=== PATIENT | female | born 1965 | race Caucasian/White ===

== ENCOUNTER 2020-07-27 19:23 | Emergency (ER) | payer OTHER ==
[~2020-07-27] VITALS: Ht 172.7 cm; Wt 81.7 kg
[~2020-07-27 19:23] MED LIST: ALER PO; BUTALB-ACETAMI1 EACH PO; CALCIUM 600 +1 EAC1 PO; DAILY VITAMIN1 EAC2 PO; MAXALT MLT10 MG PO; NORCO 5-325 TA1 EACH PO; SYNTHROID125 MCG PO
--- NOTE | 2020-07-28 13:14 | EKG ---
[facility] [address] [place] [address] Signed Normal sinus rhythm Normal ECG No previous ECGs available Confirmed by BARNEY HOLLAND MD ([id number]) on 07/28/2020 1:13:53 PM Electronically Signed By: BARNEY HOLLAND MD 07/28/20 1314 PATIENT NAME: NICHOLE DOSHI Electrocardiogram DATE OF : 65 PHYSICIAN: BARNEY HOLLAND MD REPORT #: [id number] REPORT IS CONFIDENTIAL AND NOT TO BE RELEASED WITHOUT AUTHORIZATION
== END 2020-07-27 22:00 | disposition home or self-care (01) ==
LOC: ED 19:23
DX: G43.809 Other migraine, not intractable, without status migrainosus (principal); Z88.8 Allergy status to other drugs, medicaments and biological substances; Z79.899 Other long term (current) drug therapy
CPT/HCPCS: 70450; 70496; 70498; 71045; 80053; 85025; 85610; 85730; 93005; 93010; 96361; 99284-25; J1200; J1885; J2765; J7030; Q9967

== ENCOUNTER 2021-05-28 10:39 | Inpatient (IN) | payer OTHER ==
[~2021-05-28] VITALS: Ht 172.7 cm; Wt 81.7 kg
--- NOTE | 2021-05-28 14:33 | NUR ---
REPORT RECEIVED FROM BRANDO RIZO. AWAITING PTS ARRIVAL TO UNIT.
[2021-05-28] MEDS ORDERED: NP THYROID60 MG PO (15:17)
--- NOTE | 2021-05-28 15:30 | NUR ---
PT ARRIVED FROM ER. PT SHORT OF BREATH. ABLE TO SPEAK IN 3-5 WORD SENTENCES. WHILE RESTING PT MAINTINAING OXYGEN SATRUATIONS 92-95% ON 2L O2 BY NC. PT REPORTS ACHING BACK PAIN AT 5/10, AND PAIN WITH COUGH AT 5/10, AND HEADACHE PAIN AT 6/10, BODYACHES AT 5/10. PT REPORTS "I WAS REALLY NAUSEOUS IN THE BEGINING" PT REPORTS MILD NAUSEA AT THIS TIME. PT REPORTS SHE HAS LOST HER SENSE OF TASTE AND SMELL AND HAS "NOT BEEN ABLE TO EAT VERY MUCH AT ALL." PT ENCORUAGED TO STAY HYDRATED WITH WATER TOLERATED. SEE MAR FOR MEDICATIONS GIVEN. PT ALERT AND ORIENTED TO ALL, ANSWERING QUESTIONS APPROPRIATLY. PT REPORTS GENERALIZED WEAKNESS. WEAKNESS NOTED IN PLANTAR, DORSI FLEXTION AND ARM AND LEGS RAISES. CRACKELS NOTED IN RIGHT LOWER LOBE, LEFT LOWER LOBE DEMINISHED. PT TACHPNIC WITH ANY ACTIVITY AND WITH CONVERSATION. OXYGEN SATRUATIONS 90-95% ON 2L O2 BY NC. CPOX IN PLACE. PRONING EDUCATION DONE. I.S. USE TAUGHT. PT DEMONSTRATES USE OF I.S. RACHING 500ML X3 BEFORE BECOMING EXHAUSTED. PT DECLINES PRONING AT THIS TIME. BUT AGREES TO LYE ON RIGHT SIDE. PT ASSISTED INTO RIGHT SIDED POSITION. SUPPORTED WITH PILLOWS. PT REPORTS PAIN AT IV SITE. PAIN ALSO NOTED WITH FLUSH. IV DC'D. GAUZE AND COBAN APPLIED. NEW IV STARTED PER PROTOCOL TO RIGHT WRIST. NO PAIN WITH FLUSH, NO S/S OF PHLEBITIS NOTED. MEDICAITONS GIVEN (SEE MAR). PT RESTING WITH EYES CLOSED. RESPIRATIONS EVEN AND UNLABORED. BED RAILS UP. CALL LIGHT WITHIN REACH.
--- NOTE | 2021-05-28 16:47 | NUR ---
PUMP ALARMING, INFUSION AND FLUSH COMPLETE. IV ASSESED, WNL. BRISK BLOOD RETURN NOTED. LINE FLUSHED AND SALINE LOCKED PER PROTOCOL. ALCOHOL CAP APPLIED. PT REPORTS HEADACHE NOW 2/10, BODY ACHES NOW 3/10, COUGH PAIN AT 5/10, BACK ACHE AT 2/10. PT DENIES NEED FOR ADDITIONAL PAIN MEDICATION. STAND BY ASSIST UP TO VOID, PT VOIDS 500ML CLEAR YELLOW URINE BUT STATES "IT HURTS TO PEE." PT REPORTS ABDOIMINAL PAIN WITH URINATION. WILL CONTINUE TO MONITOR. PT ENCORUAGED TO DRINK FLUIDS. PT REPOSITONED TO LEFT SIDE. BED RAILS UP. CALL LIGHT WITHIN REACH.
--- NOTE | 2021-05-28 17:46 | NUR ---
THIS RN TO ROOM TO CHECK ON PT. PT RESTING ON BACK IN SITTING POSITION. OXGYEN SATURATION REMAINS AT 92-95% ON 2L O2 BY NC. PT DENIES ADDITIONAL REQUESTS OR COMPLAINTS. CALL LIGHT WITHIN REACH. BED RAILS UP.
--- NOTE | 2021-05-28 18:14 | NUR ---
THIS RN TO ROOM TO CHECK ON PT. TELE DC'D PER MD ORDER. PT REMAINS ON CONTINIOUS PULSE OX. OXGYEN SATRAUTIONS NOTED TO BE 88% ON 2L O2 BY NC. PT IN SITTING POSITION STATING SHE IS TRYING TO DO THE PRONING ROTATION. OXYGEN INCREASED TO 4L O2 BY NC AND PT ENCOURAGED TO PRONE. PT DECLINES PRONING AT THIS TIME STATING "MAYBE TOMORROW." PT ASSISTED TO LYE ON SIDE. O2 CLIMBES TO 91% ON 4L O2 BY NC. BED RAILS UP. CALL LIGHT WITHIN REACH.
--- NOTE | 2021-05-28 18:42 | NUR ---
PTS LEO CALLED AND UPDATED ON PTS STATUS. COVID EDUCATION DONE WITH LEO WHO VERBALIZES UNDERSTANDING AND STATES HIS QUESTIONS HAVE BEEN ANSWERED.
--- NOTE | 2021-05-28 19:00 | NUR ---
PT ADMITTED TODAY FOR COVID 19 PNEUMONIA. PT UP IN ROOM WITH STAND BY ASSIST. DYSPNEA ON EXERTION NOTED WITH TACHPENIA DURING ACTIVITY. PT ON 4L O2 BY NC WITH INCREASED OXYGEN NEEDS THIS EVENING AND DURING ACTIVITY. PRONING EDUCATION DONE. PT AGREES TO BOTH SIDES AND SITTING THIS SHFIT BUT DECLIENS LYING ON HER STOMACH. PRN NAUSEA AND PAIN MEDICATION GIVEN FOR BODY ACHES, HEADACHE, AND STOMACH DISCOMFORT. PT DEMONSTRATES USE OF. I.S. THIS SHIFT, SHALLOW BREATHING NOTED. NEW IV TO RIGHT WRIST PER PT REQUEST. 1ST DOSE OF DEXAMETHASONE AND REMDESIVIR GIVEN. PT VOIDING QUANTITY SUFFICIENT. PT USES CALL LIGHT APPROPRIATLY.
--- NOTE | 2021-05-28 19:24 | NUR ---
REPORT GIVEN TO BRANDO MIGUEL WHO IS ASSUMING CARE OF PT.
--- NOTE | 2021-05-28 19:31 | NUR ---
rRORLANDOORT RECEIVED FROM MITCHELL MICHAELS ON THIS PATIENT. SHE IS COVID PNEUMONIA ADMITTED TODAY CURRENTLY ON 4 LITER O2 VIA NC. CURRENTLY ON TELE # 7 WITH CONTINUOUS PULSE/OX MONITORING.
--- NOTE | 2021-05-28 21:15 | NUR ---
IN ROOM TO ASSESS PATIENT AND TO SEE IF SHE NEEDS ANYTHING. PATIENT HAS USED RESTROOM TO VOID AND HAVE A SMALL BM, THIS RECORDED ON I & O'S. PATIENTREPORTED A HEADACHE AND SHE WAS GIVEN TYLENOL WELL ZOFRAN FOR SLIGHT NAUSEA, AND HER SCHEDULED MED SEE EMAR. PATIENT BEGINS TO COUGH DURING RESPIRATORY ASSESSMENT. HER SATS ON 4 LITER VIA NC GO DOWN INTO THE LOW MID 90'S WITH GOOD WAVEFORM. PATIENT INSTRUCTED TO COUGH AND TURN ONT O HER SIDE, SHE POSITIONS ON HER RIGHT SIDE AND SATS COME UP TO THE LOW 90'S. REINFORCED TO PATIENT THE IMPORTANCE OF MOVING POSITIONS, PRONING AND SUCH TO IMROVE HER LUNG FUNCTION. PATIENT USED INCENTIVE SPIROMETER, INSTRUCTED TO USE THIS A FEW TIMES WHEN SHE IS AWAKE. DENIES OTHER NEEDS. CALL LIGHT IN REACH.
--- NOTE | 2021-05-28 23:09 | NUR ---
CHECKED ON PATIENT. SHE APPEARS TO BE ASLEEP BUT WAKES UP EASILY. ASKED HER IF HER HEADACHE WAS BETTER SHE STATES "YES" ALSO REPORTING IMPROVED NAUSEA. PATIENT DENIES OTHER NEEDS OR REQUESTS. CALL LIGHT INREACH. REMAINS ON HER RIGHT SIDE, ON CONTINUOUS PULSE OX MONITORING, ON 4 LITERS ON NC.
--- NOTE | 2021-05-29 00:50 | NUR ---
PATIENT'S O2 SATURATION HAS GONE BACK INTO THE 80'S WENT INTO ROOM TO CHECK ON PATIENT SHE HAS GONE BACK TO HER BACK LYING POSITION. WAVEFORM CHECKED AND IS GOOD. PATIENT ENCOURAGE TO CONTINUE GOING TO HER SIDE AND PRONE POSITIONS, ENCOURAGED TO COUGH AND USE THE INCENTIVE SPIROMETER. PATIENT IS REPORTING "HEARTBURN" AND SLIGHT NAUSEA.LUNGS AUSCULTATED WHILE PATIENT ON RIGHT SIDE, UPPER LOBES CLEAR, LOWER LOBES DIMINISHED, SLIGHT CRACKLES. WILL BE CONSULTING WITH RT ABOUT NEXT STEPS, PATIENT'S O2 HAS BEEN TITRATED TO 6L NC AND SHE IS LYING ON HER RIGHT SIDE. SATS UP TO 93%
--- NOTE | 2021-05-29 01:39 | NUR ---
SHANTELLE FROM RT HAS PLACED PATIENT ON HIGH FLOW NASAL CANNUAL AT 6 LITERS. PATIENT SATS HOLDING AT 97%
--- NOTE | 2021-05-29 02:41 | NUR ---
IN ROOM TO CHECK ON PATIENT AND TO OBTAIN VITAL SIGNS. PATIENT CONTINUES TO MOVE POSITIONS FROM LEFT SIDE LAYING TO RIGHT SIDE LAYING, CURRENTLY RESTING ON HER RIGHT SIDE HUGGING PILLOW, ON 6 L O2 NASAL CANNULA HIGH FLOW HUMIDIFIED. SATS REMAIN IN MID 90 RANGE. PATIENT REPORTING HER HEARTBURN IS "MUCH BETTER" PATIENT ALSO NEEDD TO VOID, STANDBY ASSIST FOR PATIENT WHILE SHE USED COMMODE VOIDED 450 ML. BACK TO BED. CALL LIGHT IN REACH.
--- NOTE | 2021-05-29 05:25 | NUR ---
LAB COLLECTED AND SENT
--- NOTE | 2021-05-29 06:20 | NUR ---
ALMOST CORRECTION THROUGH THE SHIFT PATIENT'S SATS ON 4 LITERS NASAL CANNUAL WERE DROPPING TO THE 80'S MORE FREQUENT AND WOULD COME BACK UP WHEN PATIENT COUGHED AND TURNED TO HER SIDE. PATIENT WAS ENCOURAGED THROUGHOUT THE NIGHT TO LAY ON HER SIDE AND TO PRONE,ATIENT OPREFERS TO BE ON SIDE, EXPLAINED WHY PRONE WAS IMPORTANT. PATIENT PLACED ON 6 LITERS NC BUT SATS WOULD STILL HOVER IN THE HIGH 80'S SO PATIENT PLACED ON HUMIDIFIED HIGH FLOW 6 L NC PER RT, HAS MAINTAINED SATS IN THE MID TO UPPER 90'S. PATIENT C/O HEARTBURN DURING NIGHT GIVEN MAALOX, TYLENOL FOR HEADACHE, AND PRN COUGH MEDS. MORNING LABS DRAWN. THYROID MED GIVEN SEE EMAR.
--- NOTE | 2021-05-29 07:19 | NUR ---
REPORT RECEIVED FROM BRANDO DELAROSA. PT RESTING ON RIGHT SIDE, AWAKE AND ALERT. PT REMAINS ON 6L O2 BY HIGH FLOW NC WITH OXYGEN SATURATIONS 96-99%. WILL ADJUST O2 FLOW RATE WITH MORNING ASSESSMENT. PT REPORTS BODY ACHES AND STOMACH ACID REQUESTING MEDICATIONS. NO ADDITIONAL REQUESTS OR COMPALINTS. CALL LIGHT WITHIN REACH. BED RAILS UP.
--- NOTE | 2021-05-29 07:45 | NUR ---
MORNING ASSESSMENT AND MEDICATION DUE. PT CONTINUES TO REPORT NAUSA WELL 6/10 HEADACHE, 8/10 BACKACHE, AND 7/10 COUGH/CHEST PAIN. PT ALSO REPORTS PROBLEMS WITH "STOMACH ACID WHEN I DRINK WATER." SEE MAR FOR MEDICATIONS GIVEN. IV ASSESSED, WNL, NO S/S OF PHLEBITIS NOTED. PT REQUESTS ASSISTANCE UP TO RESTROOM. STAND BY ASSIST UP TO RESTROOM WITH 6L O2 LEFT IN PLACE. PT DESATURATES WITH ACTIVITY DOWN TO 67-72%. SEVERE DYSPNEA ON EXERTION NOTED. COUGH INCREASES AND PT REPORTS SHE "CAN'T GET MY BREATH." PT BACK TO BED INTO LEFT SIDE LYING POSITION. AFTER 5 MINUTES TIME O2 SATRUATIONS INCREASE TO 88% ON 6L O2 BY HIGH FLOW NC. O2 INCREASED TO 10L O2 BY HIGH FLOW NC WITH OXYGEN SATURATIONS STEADY FROM 91-93%. LUNG SOUNDS CLEAR ALTHOUGH DEMINISHED IN BASES. PT WEANED BACK TO 6L O2 BY NC AFTER 10 MINUTES OF RESTING TIME, OXYGEN SATRAUTIONS MAINTAINING ABOVE 90%. PT DECLINES I.S. USE AT THIS TIME STATING SHE IS TOO TIRED. PT DECLINES BREAKFAST AT THIS TIME. PRONING EDUCATION DONE WITH PT. PT AGREES TO PRONING. PT ASSISTED IN TO PRONING POSITION, SUPPORTED WITH PILLOWS. OXYGEN SATURATIONS REMAIN ABOVE 90% ON 6L O2 BY NC. CALL LIGHT AND PERSONAL BELONGINGS WITHIN REACH. NO ADDIITONAL REQUESTS OR COMPLAINTS. BED RAILS UP.
--- NOTE | 2021-05-29 08:28 | NUR ---
Spoke with pts spouse as she proning and asleep. He states they live in a 2 story home and pt uses both floors. She was having difficulty with sob prior to admit. Pt does not use any DME, financial ok. Pt usually healthy and active. 2 teenage daughter are at home and will usually healthy and active. 2 teenage daughter are at home and will assist. Daughters have both had covid, spouse is currently ill with covid. Plan for pt to go home on dc. They would like 02 from [facility] if needed on discharge. Spouse declined list of DME companies.
--- NOTE | 2021-05-29 08:34 | NUR ---
PUMP ALARMING, INFUSION AND FLUSH COMPLETE. IV ASSESSED, WNL. SALINE LOCKED WITH ALCOHOL CAP APPLIED. PT CONTINUES RESTING IN PRONE POSITION. O2 AT 96% ON 6L O2 BY NC. CALL LIGHT WITHIN REACH. BED RAILS UP.
--- NOTE | 2021-05-29 10:30 | NUR ---
THIS RN TO ROOM WITH MD FOR ROUNDS. PTS OXYGENATION VERY POSITONAL: 97-99% ON 6L O2 BY NC WITH PRONING, 92-94% LYING ON SIDE. 86-88% SITTING UP IN BED OR LYING ON BACK. PT ABLE TO TALK WITH DOCTOR. REPORTS PAIN HAS IMPROVED, NOW 2/10 HEADACHE, 2/10 COUGH PAIN , AND 3/10 BACK ACHE. PT DENIES NEED FOR ADDITIONAL MEDIAITON AT THIS TIME. PT REQUSTS TO SIT UP FOR BREAKFAST. HEAD OF BED ELEVATED AND O2 SATURATION DROPS TO 86%. O2 RAISED TO 10L O2 BY NC WITH SATURTIONS MAINTAINING ABOVE 89% WHILE EATING. NO ADDITIONAL REQUESTS OR COMPLAINS. CALL LIGHT WITHIN REACH. BED RAILS UP.
--- NOTE | 2021-05-29 11:47 | NUR ---
NOON ASSESSMENT DUE. THIS RN TO ROOM. PT RESTING IN BED ON BACK WITH HEAED OF BED ELEVATED TO 30 DEGREES. PT REPORTS 6/10 HEADACHE, BACK PAIN AND COUGHING CHEST PAIN. SEE MAR FOR MEDICATION GIVEN. PT REPORTS MILD NAUSEA BUT DENIES NEED FOR MEDICATION AT THIS TIME. PT SLIGHTLY SLOW TO RESPOND. ORIENTED TO ALL BUT TAKES A FEW ATTEMPTS TO GET THE YEAR CORRECT. PT CONTINUES TO BE VERY WEAK, ABLE TO STAND AT SIDE OF BED AND GET UP TO USE BEDSIDE COMODE, SLOW TO MOVE, STAND BY ASSIST. DYSPNEA ON EXERTION NOTED. OXYGEN SATURATIONS CONTINUE TO BE HIGHLY POSITIONAL. SITTING IN BED 10L O2 BY NC WITH O2 90-93%. UP TO BEDSIDE COMODE O2 INCREASED TO 14L O2 BY NC WITH OXYGEN SATRUATIONS 88-91%. TCHYPENEA WITH EXERTION. PT DELINSE ENSURE AT THIS TIME, SOUP ORDERED FOR LUNCH. URINE BECOMING MORE CONCENTRATED. PT ENCOURAGED TO DRINK FLUIDS. PT STATES THE ACOSTA AND JUICES "TASTE SALTY." PT AGREES TO SPEND MORE TIME PRONING AFTER LUNCH. REMAINS IN SITTING POSITION AT THIS TIME WITH O2 AT 10L AND SATRATIONS OF 90-93%. PT DEMONSTRATES USE OF I.S. X5 REACHING 500-750ML. NO ADDITIONAL REQUESTS OR COMPLAINTS. CALL LIGHT WITHIN REACH. BED RAILS UP.
--- NOTE | 2021-05-29 14:06 | NUR ---
THIS RN TO ROOM TO CHECK ON PT. PT CONTINUES TO REPORT 6/10 HEADACHE, BACK PAIN AND COUGH PAIN. PT ALSO REPORTS HEART BURN AND NAUSEA. SEE MAR FOR MEDICATIONS GIVEN. PT ON 6L O2 BY NC WHILE RESTING ON LEFT SIDE WITH O2 SATRUATIONS 90-94%. PT ASSISTED INTO PRONING POSITION AND STATES "OH, THAT FEELS REALLY COMFORTABLE." OXGYEN SATURATIONS CLIMB TO 98% ON 6L O2 BY NC. PT DENIES ADDITIONAL REQUESTS OR COMPLAINTS. CALL LIGHT WITHIN REACH.
--- NOTE | 2021-05-29 14:42 | NUR ---
PTS , LEO, CALLED AND UPDATED ON PTS CONDITION AND PLAN OF CARE. LEO STATES HIS QUESTIONS HAVE BEEN ANSWERED.
--- NOTE | 2021-05-29 15:45 | NUR ---
THIS RN TO ROOM TO CHECK ON PT. PT RESTING ON LEFT SIDE, STATES SHE "JUST ROLLED OVER." O2 AT 93% ON 6L O2 BY NC. PT REPORTS NAUSEA HAS RESOLVED AND HEADACHE, BODYACHES AND COUGH PAIN ARE NOW AT 3/10. PT DENIES NEED FOR ADDITIONAL MEDICAITON. PT REQUESTS HER DAUGHTER DELON BE CALLED AND UPDATED. CALL PLACED TO DELON, NO ANSWER AT THIS TIME. MESSAGE LEFT FOR CALL BACK. NO ADDITIONAL REQUESTS OR COMPLAINTS. PT ASSISTED WITH POSITIONING TO LYE ON RIGHT SIDE. CALL LIGHT AND PERSONEL BELONGINGS WITHIN REACH. BED RAILS UP.
--- NOTE | 2021-05-29 16:11 | NUR ---
RETURN CALL FROM DELON, RECEIVED. DELON UPDATED ON PT STATUS AND PLAN OF CARE. DELON VERBALIZES UNDERSTANDING AND STATES HER QUESTIONS HAVE BEEN ANSWERED.
--- NOTE | 2021-05-29 16:24 | NUR ---
PT HERE FOR COVID RELATED PNEUMONIA. UP WITH STAND BY ASSIST THIS SHIFT TO BEDSIDE COMODE, PT UNABLE TO DO ADDITIONAL ACTIVITY. OXYGEN SATURATION VERY POSITIONAL: 96-98 ON 6L PRONE, 90-94% ON 6L WHEN LYING ON SIDES, 90-91 ON 10L SITTING UP TO EAT, 88-90 ON 10L UP TO BEDSIDE COMODE. VERY MINIMAL APPITITE NOTED. PT CONTINUES TO REPORT NAUEA AND PROBLEMS WITH ACID REFLUX, PRN MEDICATIONS GIVEN. PRN MEDICATION GIVEN FOR BODY ACHES, HEADACHE AND COUGH PAIN WELL. TELEMETRY HEART MONITORING DC'D, CONTINIOUS PULSE OX REMAINS IN PLACE. REMDESIVIR AND DEXAMETHASONE GIVEN. PT VOIDING QUANTITY SUFFIENT, PO FLUIDS ENCORUAGED. I.S. USE ENSURED, PT CONTINUES TO REACH ~500ML. PT USES CALL LIGTH AND MAKES NEEDS KNOWN.
--- NOTE | 2021-05-29 16:53 | NUR ---
AFTERNOON ASSESSMENT DUE. THIS RN TO ROOM. PT REMAINS ON RIGHT SIDE. OXYGN SATURATIONS 95% ON 6L O2 BY NC. PT REPORTS ACID REFLUX CONTINUES AND STATES SHE IS UNABLE TO DRINK HER WATER LIKE SHE WANTS BECUASE "IT MAKES THE ACID WORSE EVERY TIME I DRINK." PT ALSO REQUESTS SOME MELATONIN. MESSAGE SENT TO WITH UPDATE/REQEUSTS. PT REPORTS HEADACHE, BODYACHES AND COUGH PAIN REMAIN AT 3/10 AND DENIES NEED FOR PAIN MEDICATION AT THIS TIME. PT ALERT AND OIRENTED AT THIS TIME, CARRYING ON CONVERASATION. WEAKNESS CONTINUES, SBA, BUT PT IS VERY SLOW TO MOVE. SBA UP TO BEDSIDE COMODE. O2 DROPS TO 84% ON 10L O2 BY NC WITH ACTIVITY. PT REMAINS ON 10L O2 BY NC WHILE SITITNG UP IN BED TO EAT. CRACKELS CONTINUE IN BASES OF LUNGS. I.S. USE DEMONSTRATED REACHING 900ML X2 ADN 750ML X4. PT REPORTS SHE FEELS SHE IS CLOSE TO AN ANXIETY ATTACK, THERAPUTIC COMMUNICAITON DONE AND PLAN MADE. PT STATES SHE FEELS BETTER, WILL CONTINUE TO MONITOR. PT REPORTS "I THINK I AM GETTING AN ULCER" AND STATES STOMACH PAIN FELLS SIMILAR TO ULCERS SHE HAS HAD IN THE PAST. DINNER ARRIVED, PT ABLE TO TAKE 2-3 BITES BEFORE STATING THAT EATING AND DRINKING IS MAKING HER ABDOMINAL PAIN WORSE. PT CONTINUES SITTING UP IN BED. HEAD OF BED ELEVATED TO 45 DEGREES. O2 SATURATIONS HAVE DROPPED TO 85% ON 10 WHILE SITTING. O2 INCREASED TO 14L BY HIGH FLOW HUMIDIFIED NC WITH SATURATIONS CLIMBING TO 90%. CALL LIGHT WITHIN REACH. BED RAILS UP.
--- NOTE | 2021-05-29 17:20 | NUR ---
MD UPDATED FACE TO FACE REGARDING PTS CONCERNS AND OXYGEN NEEDS. NEW ORDERS PLACED. MEDICATIONS GIVEN (SEE MAR). PT RESTING IN SUPINE POSITION. REMAINS ON 14L O2 BY HIGH FLOW NC WITH O2 SATURATIONS 88-92%. BED RAILS UP. CALL LIGHT WITHIN REACH.
--- NOTE | 2021-05-29 17:44 | NUR ---
MED REC COMPLETE
--- NOTE | 2021-05-29 18:42 | NUR ---
THIS RN TO ROOM TO CHECK ON PT. STAND BY ASSIST UP TO BEDSIDE COMODE. O2 AT 14L DURING ACTIVITY, PT DESATURATES TO 82% ON 14L WITH ACTIVITY, COUGH INCREASES AND TACHEPNEA RR=[id number] NOTED. STAND BY ASSIST BACK TO BED. PT POSITIONED ON RIGHT SIDE OXYGEN SATURATIONS RECOVER IN 5MINTUES TIME. PT WEANED BACK TO 6L O2 BY NC WITH OXYGEN SATURATIONS 90-93%. COUGH MEDICATIONS GIVEN. PT REPORTS MEDICATIONS HELPED HER STOMACH, ACID REFULX "A LOT." NO ADDITIONAL REQUESTS OR COMPLAINTS. CALL LIGHT WITHIN REACH.
--- NOTE | 2021-05-29 19:41 | NUR ---
RECIVED REPORT FROM MITCHELL MICHAELS ON THIS PATIENT. PATIENT REMAINS ON HIGH FLOW HUMIDIFIED O2 AT 6 LITERS NC, HAS BEEN PRONING AND LYING ON HER SIDES TODAY BUT APPEARS VERY TIRED WITH ANY ACTIVITY SUCH EATING AND VOIDING. POSSIBLY MAY NEED TO BE PLACED ON VAPOTHERM TONIGHT. PT WANTS TO PUT EARRINGS IN SAFE TIME WILL GO IN TO CHECK ON HER
--- NOTE | 2021-05-29 20:19 | NUR ---
in room to do assessment. patient's earrings, x 4 collected and placed in specimen cup pt wishes for them to be put in safe. pt had to use commode has had small bm. luciano reports headache to have tylenol prn see emar. patient denies other needs at this time. continues on high flow humidifed o2 at 6 liters NC sats 95%
--- NOTE | 2021-05-29 22:28 | NUR ---
CHECKED ON PATIETN TO SEE HOW HER HEADACHE IS, PATIENT APPEARED TO BE SLEEPING, RESPIRATIONS EVEN, UNLABORED, CONTINUES TO BE ON HIGH FLOW O2 AT 6 LITERS NC, LYING ON HER RIGHT SIDE. CALL LIGHT IN REACH.
--- NOTE | 2021-05-29 23:24 | NUR ---
AT PATIENT'S DOOR TO CHECK ON HER. SHE IS LYING ON HER RIGHT SIDE, AKSED IF SHE WAS DOING OK, ASKED PATIENT IF SHE HAS BEEN TURNING SELF SHE SAYS SHE "HAS BEEN GOING TO MY OTHER SIDE" REMAINS ON HIGH FLOW O2 6 LITERS NC. CALL LIGHT IN REACH
--- NOTE | 2021-05-30 01:46 | NUR ---
in room to check on patient and change tele battery she wakes up to this rn's voice. patient lying on her left side. requests fresh ice water this provided. patient has not had to void for several hours continues to deny need. has been drinking fluids while awake. reports she has used IS when she was awake. sats remain low mid 90's on 6 l o2 humidified via nc. asks for "more maalox"
--- NOTE | 2021-05-30 03:55 | NUR ---
in to assist pt up to the bsc, sba pivot, pt o2 dropped and pt was sob, i.s. used and pt recovered, ice water provided, no further needs at this time
--- NOTE | 2021-05-30 04:13 | NUR ---
PT ASKS FOR MORE TYLENOL FOR HEADACHE, SEE EMAR. VITALS OBTAINED, PATIENT ALSO JUST VOIDED PRIOR TO THIS RN COMING PATRICIA ROOM. PT LAYING ON RIGHT SIDE, HIGH FLOW O2 VIA 6L NC. NO OTHER NEEDS, CALL LIGHT IN REACH
--- NOTE | 2021-05-30 05:13 | NUR ---
COLLETCED BLOOD SPECIMEN AND SENT TO LAB
--- NOTE | 2021-05-30 06:41 | NUR ---
PATIENT HAS MANAGED TO TURN SIDE TO SIDE THROUGHOUT NIGHT. HAD TYLENOL TWICE THIS SHIFT FOR ONGOING HEADACHE. HAS HAD ABOUT 950 ML ORAL INTAKE IN 24 HOURS, 1400 URINE OUTPUT. USING I.S. WHEN AWAKE. USING MAALOX FOR HEARTBURN.
--- NOTE | 2021-05-30 07:12 | NUR ---
REPORT RECEIVED FROM BRANDO DELAROSA. PT RESTING ON RIGHT SIDE, TALKING ON PHONE. O2 SATURATIONS 96% ON 6L O2 BY NC. PT REPORTS 2/10 HEADACHE AND COUGHING CHEST PAIN, PT STATES PAIN IS TOLEARABLE AT THIS TIME AND DENIES NEED FOR MEDICATION. NO ADDITIONAL REQUESTS OR COMPLAINTS. CALL LIGHT WITHIN REACH. BED RAILS UP.
--- NOTE | 2021-05-30 08:30 | NUR ---
MORNING ASSESSMENT AND MEDICAITON DUE. PT REPORTS BURNING STOMACH "ACID" PAIN HAS RETURNED, NOW AT 7/10, SEE MAR FOR MEDICAITON GIVEN. PT REPORTS 2/10 HEADACHE AND 3/10 BACK PAIN, PT DENIES NEED FOR MEDICATION AT THIS TIME. SUPERVISOR PARK WORKERS AT BEDSIDE HELPING PT TO SITTING POSITION FOR BREAKFAST. PT DROPS TO 80% ON 6L O2 IN SITTING POSITION. O2 INCRASED TO 14L WHILE EATING WITH OXYGEN SATRATIONS 85-90%. PT DENIES NAUSEA. PT REPORTS SHE WAS ABLE TO HAVE A SMALL BOWEL MOVEMENT LAST NIGHT. NO DIARRHEA NOTED. PT ALERT AND ORIENTED. LUNG SOUNDS CLEAR IN UPPER LOBES, RIGHT LOWER LOBE CRACKLES NOTED, LEFT LOWER LOBE DEMINISHED. PT DEMONSTRATES USE OF I.S. REACHING 300ML X5. COUGHING INCREASED, COUGH MEDICAITON GIVEN. PT REPORTS NEED TO USE THE RESTROOM. OXYGEN INCREASED TO 16L O2 BY NC PRIOR TO ACTIVITY. OXGYEN SATRATIONS REMAIN IN THE 80'S. PT DROPS TO 76% WITH ACTIVITY DESPITE 16L O2 BY NC. PT VOIDS 400ML CLEAR YELLOW URINE WITH OUT ISSUE. PT PERFORMES SELF STEVEN CARE. PT BACK TO BED AND ASSSISTED INTO PRONING POSITION. OXYGEN SATRUATIONS CLIMB TO 98%, PT WEANED BACK TO 6L O2 BY NC AND IS MAINTAING OXYGEN SATRATIONS ABOVE 92% ON 6L WHILE PRONING. PT REPORTS FEELING COMFORTABLE. NO ADDITIONAL REQUESTS OR COMPLAINTS. CALL LIGHT WITHIN REACH. BED RAILS UP.
--- NOTE | 2021-05-30 09:17 | NUR ---
REMDESIVIR ARRIVED FROM PHARMACY, IV ASSESSED, WNL, MEDICATION STARTED. PT NOTED TO BE 86-89% ON 6L O2 BY NC WHILE PRONING. PT INCREASED TO 8L 2O BY NC AND IS MAINTINING OXYGEN SATURATIONS 90-94% WHILE PRONING. NO ADDITIONAL REQUESTS OR COMPLAINTS. CALL LIGHT WITHIN REACH. BED RAILS UP.
--- NOTE | 2021-05-30 10:15 | NUR ---
IV PUMP ALARMING, INFUSION AND FLUSH COMPLETE. IV ASSESSED, WNL, FLUSHED AND ALCOHOL CAP APPLIED, SALINE LOCKED AT THIS TIME. PT REPOSITONS SELF FROM PRONING TO LEFT SIDE LIYING. PT COTINUES TO NEED 8L O2 BY NC WHEN PRONING AND SIDELYING TO MAINTAIN OXYEN SATURATIONS ABOVE 90%. OXGYEN SATRUATION CURRENTLY 90-93% WITH PT LYING ON LEFT SIDE. PT DEMONSTRATES USE OF I.S. REACHING 500ML X4. NO ADDITIONAL REQUESTS OR COMPLAINTS. CALL LIGHT WITHIN REACH. BED RAILS UP.
--- NOTE | 2021-05-30 11:16 | NUR ---
THIS RN TO ROOM TO CHECK ON PT. PT REPORTS HUNGER. PT HYPEROXYGENATED PRIOR TO SITITNG UP. O2 INCREASED TO 16L O2 BY NC AND PT ASSISTED INTO SITITNG POSITION IN BED. OXGYEN SATURATIONS MAINTAINING ABOVE 90% ON 16L O2 BY NC. PT REPORTS HER TASTE SEEMS TO BE RETURNING STATING "I CAN TASTE THE YOGURT NOW." LUNCH ORDER PLACED. NO ADDITIONAL REQUESTS OR COMPLAINTS. CALL LILIANA WATERS.
--- NOTE | 2021-05-30 11:37 | NUR ---
PT CALL LIGHT ON. PT REQUESTS ASSISTANCE UP TO RESTROOM. PT HYPEROXYGENATED PIROR TO USING BEDSIDE COMODE. PT UP WITH STAND BY ASSIST. OXYGEN SATRUATIONS DROP TO 85-88% ON 16L O2 BY NC WITH ACTIVITY. PT ASSISTED BACK TO BED. REQUESTS TO REMAIN IN SITTING POSITION. PT REMAINS ON 16 L2 O BY NC WITH OXYGEN SATURATIONS 90-95% ON 16L O2 BY NC. PT DEMONSTRATES USE OF I.S. REACHING 500ML X5. NO ADDITIONAL REQUESTS OR COMPLAINTS. CALL LIGHT WIHTIN REACH. BED RAILS UP.
--- NOTE | 2021-05-30 12:30 | NUR ---
THIS RN TO ROOM TO CHECK ON PT. LUNCH ARRIVED. PT REMAINS IN SITTING POSITION FOR LUNCH WITH NC IN PLACE AT 16L O2, OXYGEN SATURATIONS 94-98%. MD TO BEDSIDE FOR ROUNDS. PT CONTINUES TO REPORT INCREASED STOMACH ACID PROBLEMS AND PAIN WITH EATING. ADDITIONAL MEDICAITONS TO BE ORDERED BY MD. PT REPORTS SHE GENERALLY FEELS "BETTER." NO ADDITIONAL REQUESTS OR COMPLAINTS. CALL LIGHT WITHIN REACH.
--- NOTE | 2021-05-30 14:22 | NUR ---
AFTERNOON ASSESSMENT DUE. PT REMAINS IN SITTING POSITION IN BED. OXGYEN SATURATION >90% ON 16L O2 BY HIGH FLOW NC. PT REPORTS STOMACH ACID HAS RETURNED NOW AT 7/10 AFTER EATING. PT ALSO REPORTS 4/10 HEADACHE IS RETURNING. SEE MAR FOR MEDICATION GIVEN. LUNG SOUNDS UNCHANGED. PT DEMONSTRATES USE OF I.S. REACHIGN 500ML X5, COUGHING INCREASES. PT DECLINES COUGH MEDICATION AT THIS TIME. PT ASSISTED INTO PRONING POSITION, SUPPORTED WITH PILLOWS. PT WEANED TO 8L O2 WHILE PRONING WITH OXYGEN SATURATIONS ABOVE 90%. ORAL HYDRATION ENCOURAGED. NO ADDITIONAL REQUESTS OR COMPLAINTS. CALL LIGHT WITHIN REACH. BED RAILS UP.
--- NOTE | 2021-05-30 15:00 | NUR ---
CALL PLACED TO [facility] FOR UPDATE. NO ANSWER AT THIS TIME, MESSAGE LEFT FOR CALL BACK.
--- NOTE | 2021-05-30 15:10 | NUR ---
LEO RETURNED CALL. LEO UPDATED ON PTS CONDITION AND PLAN OF CARE. LEO VERBALIZES UNDERSTANDING AND STATES HIS QUESTIONS HAVE BEEN ANSWERED.
--- NOTE | 2021-05-30 15:54 | NUR ---
PT HERE FOR COVID 19 PNEUMONIA. PT UP WITH STAND BY ASSIST TO BEDSIDE COMODE. PT TOELRATING REGULAR DIET, REPORTS TASTE IS IMPROVING, STILL MINIMAL APPITITIE. PT CONTINUES TO REPORT SEVERE HEART BURN, PRN MEDICATIONS GIVEN, ADDITIONAL MEDICATIONS ADDED TO EMAR THIS SHIFT. LUNG SOUNDS UNCHANGED. PT REMAINS ON OXYGEN DEPENDANT UPON POSITION TO MAINTAIN O2 SATURATIOSN ABOVE 90%: PRONING ADN SIDE LIYING 6-8L O2 BY NC, SITTING 16L O2 BY NC, ACTIVITY PT DESATURATES ON 16L O2 BY NC TO 70-80%'S. PT DEMONSTRATES USE OF I.S. REACHING 500ML THIS SHIFT. PT PARTICIPATING IN PRONING PROTOCOL. PO INTAKE ENCOURAGED THIS SHIFT. PT VOIDING QUANTITY SUFFICIENT. PT USES CALL LIGHT APPROPRIATLY AND MAKES NEEDS KNOWN.
--- NOTE | 2021-05-30 16:21 | NUR ---
THIS RN TO ROOM TO CHECK ON PT. PT RESTING IN BED ON BACK WITH BED FLAT. OXYGEN SATURATIONS 89-95% ON 8L O2 BY NC. PT REPORTS HEADACHE HAS IMPROVED, NOW 3/10 AND STOMACH PAIN HAS IMPROVED, NOW 5/10. PT DENIES NEED FOR ADDITIONAL MREDICAITONS. NO ADDITIONAL REQUESTS OR COMPLAINTS. CALL LIGHT WITHIN REACH. BED RAILS UP.
--- NOTE | 2021-05-30 17:02 | NUR ---
DINNER ARRIVED. PT HYPEROXYGENATED WITH 16L O2 BY NC PRIOR TO SITTING UP. STAND BY ASSIST UP TO BEDSIDE COMODE. PT VOIDS CLEAR YELLOW URINE WITHOUT ISSUE. OXYGEN SATURATIONS DOP TO 70%'S WITH AMBULATION. STAND BY ASSIST BACK TO BED. PT REMAINS ON 16L O2 BY NC WHILE SUPINE TO EAT. OXYGEN SATURATIONS 87-91%. NO ADDITIONAL REQUESTS OR COMPLAINTS. CALL LIGHT WITHIN REACH. BED RAILS UP.
--- NOTE | 2021-05-30 18:11 | NUR ---
THIS RN TO ROOM TO CHECK ON PT. PTS HAIR BOTHERING HER, HAIR COMBED AND BRADED FOR PT. PT DECLINES SHOWER CAP OR BED BATH AT THIS TIME. PT REMAINS IN SEMIFLOWLER POSIITON ON 12L O2 BY NC WITH OXYGEN SATURATIONS 90-94%. VITAL SIGNS STABLE. NO ADDITIONAL REQUESTS OR COMPLAINTS. PT WATCHING TV. CALL LIGHT WITHIN REACH.
--- NOTE | 2021-05-30 19:15 | NUR ---
PATIENT RESTING QQUIETLY IN IN BED ON HER LEFT SIDE ON 8L/NC. PATIENT HAS ASKED FOR HEARTBURN MEDICATION AND TYLENOL WHEN THIS RN RETURNS TO THE ROOM. PATIENT HAD NO OTHER CARE NEEDS AT THIS TIME. CALL LIGHT IS IN REACH AND SHIFT REPORT RECEIVED FROM BRANDO MEDRANO.
--- NOTE | 2021-05-30 21:00 | NUR ---
PATIENT UP TO THE BEDSIDE COMMODE WITH 1PSBA. PATIENT WAS PATIENT'S O2 INCREASED TO 15/L ON HIGH FLOW NASAL CANNULA PRIOR TO GETTING UP. SATS DROPPED INTO THE HIGH 80'S AND WENT BACK INTO THE 90'S WHEN PATIENT GOT BACK INTO BED IN THE PRONE POSITION AND O2 TURNED DOWN TO 8L/NC. PATIENT TOOK HER EVENING MEDS WITHOUT DIFFICULTY. PRN MAALOX GIVEN FOR UPSET STOMACH AND TYLENOL GIVEN FOR RITTER. PATIENT'S ICE WATER WAS REFILLED AND HER CALL LIGHT IS IN REACH. PATIENT WILL CALL WHEN SHE IS READY TO TURN AGAIN. SATS=95%.
--- NOTE | 2021-05-30 22:34 | NUR ---
PATIENT CALLED AND READY TO TURN. ASSISTED PATIENT FROM TURNING PRONE TO HER LEFT SIDE. PILLOW BEHIND THE BACK AND PILLOW BETWEEN THE KNEES FOR COMFORT. PATIENT DRANK SOME WATER WHILE I WAS IN THE ROOM. PATIENT REMAINS ON 8L/NC HIGH FLOW WITH O2 SATS OF 92%. PATIENT HAD NO OTHER NEEDS AT THIS TIME. CALL LIGHT IS IN REACH.
--- NOTE | 2021-05-31 00:33 | NUR ---
PATIENT READY TO TURN. ASSISTED IN TURNING TO PATIENT TO HER RIGHT SIDE, PILLOW TO HUG, PILLOW TO BACK, AND PILLOW BETWEEN KNEES. C/O RITTER 5/10 AND PO TYLENOL GIVEN. PATIENT HAS AN UPSET STOMACH AND IS NAUSEATED. 4MG IV ZOFRAN AND PO MAALOX GIVEN. PATIENT ALSO HAD SOME MORE COUGH SYRUP. PATIENT DRANK SOME WATER AND HER CALL LIGHT IS IN REACH. PATIENT REMAINS AT 93% ON 8L/NC HIGH FLOW.
--- NOTE | 2021-05-31 01:23 | NUR ---
[place] RESTING QUIETLY ON HER RIGHT SIDE, EYES ARE CLOSED, RESPIRATIONS ARE REGULAR, AND PATIENT REMAINS ON 8L/NC HIGH FLOW. O2 SATS=94% AND CALL LIGHT IS IN REACH.
--- NOTE | 2021-05-31 03:04 | NUR ---
PATIENT HAS TURNED TO HER LEFT SIDE FOR AWHILE AND IS NOW TURNING BACK TO HER RIGHT. PILLOWS WERE READJUSTED AND WATER GLASS REFILLED. PATIENT O2 SAT BATTERY FOR TELE WAS CHANGED. PATIENT HAD NO OTHER NEEDS AT THIS TIME. CALL LIGHT IS IN REACH.
--- NOTE | 2021-05-31 05:00 | NUR ---
PATIENT RESTING QUIETLY ON HER RIGHT SIDE, REMAINS ON 8L/NC HIGH FLOW WITH SATS IN THE LOW TO MID 90'S AND HR IN THE 50'S-60'S. PATIENT'S EYES ARE CLOSED AND RESPIRATIONS REGULAR. CALL LIGHT IS IN REACH.
--- NOTE | 2021-05-31 06:35 | NUR ---
PATIENT UP TO THE BEDSIDE COMMODE TO VOID 1PSBA AND THOUGHT SHE NEEDED TO HAVE A BOWEL MOVEMENT WELL BUT DID NOT. PATIENT HAS BEEN ON 8L/NC HIGH FLOW ALL NIGHT EXCEPT TURNING IT TO 15L/WHEN UP USING THE COMMODE SHE DESATS. PATIENT DID NO COMPENSATE THIS TIME AND THIS RN HAD TO LEAVE HER ON 12L/NC HIGH FLOW WHEN I LEFT THE ROOM. PATIENT GOT MAALOX AND CARAFATE FOR UPSET STOMACH, TYLENOL PO FOR RITTER OF 5/10, COUGH SYRUP, AND TESSALON PEARLS FOR HER COUGH. PATIENT IN BED POSITONED ON HER LEFT SIDE AT THIS TIME AND HER CALL LIGHT IS IN REACH. 02 SATS AT 90%.
--- NOTE | 2021-05-31 07:20 | NUR ---
REPORT RECEIVED FROM BRANDO CASH. THIS RN ASSISTING SUZIE (PTS PRIMARY RN) WITH MORNING CARES. PT RESTING IN PRONE POSITION WITH EYES CLOSED. HIGH FLOW NC ON 12L WITH OXYGEN SATRATIONS 95-98%. PT ALLOWED TO REST. CALL LIGHT WITHIN REACH. BED RAILS UP.
--- NOTE | 2021-05-31 08:17 | NUR ---
MORNING ASSESSMENT AND MEDICATION DUE. PT REMAINS IN PRONE POSITION ON 12L O2 BY NC WITH OXYGEN SATURATIONS 95-98%. THIS RN TO ROOM. PT AWAKENS TO MOVMENT IN ROOM. PT STATES SHE HAD TROUBLE SLEEPING LAST NIGHT RELATED TO HER SORE BACK AND A COUGHING FIT WHICH "MADE ME CHOAK AND SCARED ME." MEDICATION RECENTLY GIVEN. PT CURRENTLY RATES BACK ACHING PAIN AT 5/10. PT REPORTS FEELINGS OF HEART BURN AND "STOMACH ACID" ARE IMPROVING BUT CONTINUES TO RATE THEM AT 7/10. PT DENIES NASUEA AND DIARRHEA. GENERALIZED WEAKNESS CONTINUES, PT ABLE TO REPOSTION SELF WITH EASE AND IS NOW DOING SOME OF HER OWN MEAL TRAY SET UP. LUNGS SOUNDS CLEAR IN UPPER LOBES. DEMINISHED IN BASES. RT TO BEDSIDE FOR EVALUATION. PT ASSISTED WITH REPOSITIONING TO SEMIFLOWERS FOR BREAKFAST. HEAD OF BED ELEVATED TO 42 DEGREES. OXGYEN INCREASED TO 16L O2 BY NC WHILE SUPINE AND EATING. PT ABLE TO MAINTAIN OXYGEN SATURATIONS ABOVE 90%. PT NOW ABLE TO TALK IN COMPLETE SENTANCES WITHOUT BREATHS BETWEEN WORDS. PT REPORTS HER APPITTIE IS IMPROVING, ORDERS ADDITIONAL FOOD FOR BREAKFAST STATING SHE WOULD LIKE TO "EAT MORE PROTIEN." PT REPORTS SENSE OF TASTE IS IMPROVING. PT DEMONSTRATES USE OF I.S. REACING 500 X5 AND 750 X2. NO ADDITIONAL REQUESTS OR COMPLAINTS. CALL LIGHT WITHIN REACH. BED RAILS UP.
--- NOTE | 2021-05-31 09:13 | NUR ---
THIS RN TO ROOM TO CHECK ON PT. PT REMAINS IN SEMIFLOWER POSITION. MAINTAINING OXYGEN SATURATIONS ABOVE 92%. PT WEANED TO 8L O2 BY HIGH FLOW HUMIDIFIED NC. PT ABLE TO MAINTAIN OXGYEN SATURATIOSN 89-93% ON 8L O2 BY NC WHILE IN SEMIFOWLER POSITION. PT REPORTS BACKACHE IS IMPROVING AND STOMACH IS "ABOUT THE SAME." PUMP ALARMING, INFUSION AND FLUSH COMPLETE. IV FLUSHED AND SALINE LOCKED PER PROTOCOL. ALOCHOL CAP APPLIED. PT ORDERS ADDITIONAL MILK AND HAM FOR BREAKFAST. TOLERATING PO INTAKE WELL. NO ADDITIONAL REQUESTS OR COMPLAINTS CALL LIGHT WITHIN REACH. BED RAILS UP.
--- NOTE | 2021-05-31 09:27 | NUR ---
PT REQUESTS ASSISTANCE UP TO BEDSIDE COMODE. O2 UP TO 16L FOR ACTIVITY. PT MAINTAINS OXYGEN SATURATIONS ABOVE 90% DURING BEDSIDE COMODE USE ON 16L O2 BY NC. PT PER FORMS SELF STEVEN CARE. PT BACK TO BED AND ASSISTED INTO PRONE POSITION. PT STATES SHE IS FEELING BETTER TODAY STATING "MY THINKING IS A LOT CLEARER." PT WEANED TO 4L O2 BY NC WHILE IN PRONE POSITION WITH O2 SATURATIONS REMAINING ABOVE 90%. NO ADDITIONAL REQUESTS OR COMPLAINTS. CALL LIGHT WITHIN REACH. BED RAILS UP.
--- NOTE | 2021-05-31 09:36 | NUR ---
SUZIE, PTS PRIMARY CARE CARE RN UPDATED ON PTS STATUS AND MORNING ASSESSMENT. SUZIE STATES HER QUESTIONS HAVE BEEN ANSWERED.
--- NOTE | 2021-05-31 11:24 | NUR ---
REPORT RECEIVED FROM ANNE LARSEN RN ASSUMING PRIMARY CARE OF PT. THIS RN TO ROOM TO CHECK ON PT. PT SITTING UP IN SEMIFOWERLS POSITION WATCHING TV. PT REPORTS "i HAVE MORE ENERGY TODAY AND DON'T WANT TO JUST SLEEP." PT REPORTS 3/10 BACKACHE AND HEADACHE WHICH IS TOLERABEL, SEE MAR FOR MEDICATION GIVEN. PT REPORTS STOMACH ACID CONTINUES AT 7/10, MEDICATION GIVEN. PT REMAINS ON 8L WHILE IN SEMIFOWELERS POSITION. PT ABLE TO CARRY ON CONVERSATION WITH OUT NEEDING BREATHS BETWEEN WORDS. OXYGEN SATURATION 90-94% ON 8L O2 BY NC. NO ADDITIONAL REQUESTS OR COMPLAINTS. CALL LIGHT WITHIN REACH. BED RAILS UP.
--- NOTE | 2021-05-31 12:18 | NUR ---
LUNCH ARRIVED. DELIVERED TO PT. STAND BY ASSIST UP TO BEDSIDE COMODE. O2 INCREASED TO 16L O2 BY NC WHILE UP TO BESIDE COMODE. OXYGEN SATURATTIONS MAINTAINING ABOVE 90% WHILE UP TO VOID. STAND BY ASSIST BACK TO BED. PT IN SEMIFOWLERS POSITON TO EAT LUNCH. O2 AT 12L BY OK WITH OXYGEN SATURATIONS 88-92%. NO ADDITIONAL REQUESTS OR COMPLAINTS. CALL LIGHT WITHIN REACH. BED RAILS UP.
--- NOTE | 2021-05-31 12:54 | NUR ---
LEO, PTS , CALLED WITH UPDATE ON PTS STATUS AND PLAN OF CARE. LEO VERBALIZES UNDERSTANDING AND STATES HIS QUESTIONS HAVE BEEN ANSWERED.
--- NOTE | 2021-05-31 13:30 | NUR ---
PT CALL LIGHT ON. PT REQUESTS ASSISTANCE UP TO BEDSIDE COMODE. RHONDA THAKUR ASSIST ASKS WHAT TO PLACE PT ON FOR BLAZE JOYNER ADVISED TO TURN PT UP TO 16L WHILE UP. THIS RN TO ROOM. PT UP TO BEDSIDE COMODE ON 16L O2 BY NC. OXYGEN SATURATIONS 88-92%. PT VOIDS 500ML CLEAR YELLOW URINE AND HAS LARGE BROWN FORMED BOWEL MOVEMENT. PT ASSISTED BACK TO BED. PT REMAINS ON 16L O2 BY NC AT THIS TIME TO RECOVER. PT IN SEMI FOWELS POSTIION WITH O2 SATRUATIONS AT 2L O2 BY NC. CALL LIGHT WITHIN REACH. BED RAILS UP.
--- NOTE | 2021-05-31 14:35 | NUR ---
AFTERNOON ASSESSMENT DUE. PT REQUESTS ASSISTANCE WITH DAILY CARES. THIS RN TO ROOM. PT RESTING IN BED IN SEMI ZULUAGA POSITION. OXGYEN SATURATION 94% ON 16L O2 BY NC. PT ABLE TO BRUSH TEETH INDEPENDANTLY. NEEDS ASSISTANCE WITH COMBING AND STYLING HAIR. FACE WASHED. PT DECLINES BED BED TODAY STATING "MAYBE TOMORROW I CAN TAKE A SHOWER." PT REPORTS 5/10 BACK PAIN AT THIS TIME, DENIES HEADACHE. PT DENIES NEED FOR MEDICATION. LUNG SOUNDS CLEAR BUT DEMINISHED IN BASES. I.S. USE ENCORUAGED. PT REACHES 1000ML X3. PT WEANED TO 10L O2 BY NC WHILE REMAINING IN SEMI ZULUAGA POSITION. PT REPORTS SHE SPENT SOME TIME PRONING AND ON SIDES THIS MORNING. PT REQEUSTS TO REMAIN SITTING FOR THIS TIME. O2 REMAINS AT 10L BY HUMIDIFIED HIGH FLOW NC WITH OXYGEN SATURATONS 90-94%. NO ADDITIONAL REQUESTS OR COMPLAINTS. CALL LIGHT WITHIN REACH. BED RAILS UP.
--- NOTE | 2021-05-31 16:22 | NUR ---
THIS RN TO ROOM TO CHECK ON PT. PT REQUESTS ASSISTANCE UP TO BEDSIDE COMODE. O2 INCREASED TO 16L WITH ACTIVITY AND PT ABLE TO MAINTAIN SATURATIONS FROM 88-94%. LINENS CHANGED WHILE PT IS UP. PT BACK TO BED AND ASSISTED INTO PRONE POSITION. MEDICATIONS GIVEN. PT WEANED TO 6L O2 BY NC. WITH OXYGEN SATRAUTIONS ABOVE 90%. NO ADDITIONAL REQUESTS OR COMPLAINTS. CALL LIGHT WIHTIN REACH. BED RAILS UP.
--- NOTE | 2021-05-31 17:14 | NUR ---
PTS DAUGHTER, DELON, CALLED PER PT REQUEST. NO ANSWER AT THIS TIME.
--- NOTE | 2021-05-31 17:22 | NUR ---
PT HERE FOR COVID 19 PENUMONIA. STAND BY ASSIST IN ROOM UP TO BEDSIDE COMODE. PT TOELRATING REGULAR DIET WITH INCREASED APPITTIE AND IMPROVED INTAKE. PT REPORTS HER TASTE IS RETURNING. LUNG SOUNDS DEMINISHED IN BASES. PT WEANED TO 4-6L O2 BY NC WHEN SIDE LYING OR PRONING, 8-10L O2 BY NC WHEN SITTING, AND 12-16 WITH ACTIVITY WHICH KEEPS OXYGEN SATURATIONS ABOVE 90%. pT REPORTS STOMACH "ACID" PAIN IS IMPROVING, PRN MEDICAITONS GIVEN. PRN TYELNOL GIVEN FOR BACKACHE. PT USING I.S. AND PARTICIPATING IN PRONING PROTOCOLS. BOWEL MOVEMENT THIS SHIFT. PT VOIDING QUANTITY SUFFICIENT. PT USES CALL LIGHT AND MAKES NEEDS KNOWN.
--- NOTE | 2021-05-31 18:46 | NUR ---
THIS RN TO ROOM TO CHECK ON PT. PT HAVING URGENCY WITH BOWEL MOVEMENT. STAND BY ASSIT UP TO BED SIDE COMODE. PT INCREASED TO 16L O2 BY NC WITH ACTIVITY. PT TIRES QUICKLY AND NEEDS ASSISTANCE WIPING. PT BACK TO BED AND LYING ON RIGH SIDE. O2 WEANED TO 10L O2 BY NC. PT REPORTS 5/10 HEADACHE, AND 7/10 ACID PAIN IN STOMACH. PT ALSO REPORT COUGH IS INCREASING. SEE MAR FOR MEDICATION GIVEN. PT DENIES ADDITIONAL REQUESTS OR COMPLAINTS. CALL LIGHT WITHIN REACH. BED RAILS UP.
--- NOTE | 2021-05-31 19:36 | NUR ---
REPORT RECEIVED FROM BRANDO MEDRANO. PATIENT RESTING ON HER RIGHT SIDE, REMAINS ON HER NASAL CANNULA, O2 SATS=96%, AND PATIENT HAS NO CURRENT CARE NEEDS. CALL LIGHT IS IN REACH.
--- NOTE | 2021-05-31 21:30 | NUR ---
PATIENT NAUSEATED AND 4MG IV ZOFRAN GIVEN, EVENING IV PROTONIX GIVEN, AND PO CARAFATE GIVEN. PATIENT CURRENTLY IN SEMI-FOWLERS POSITION ON HER BACK ON 10L/NC HIGH FLOW WITH SATS OF 95%. NAUSEA STARTED TO CALM AND PATIENT ATE SOME PEARS THAT SHE HAD AT BEDSIDE. PATIENT'S ICE WATER WAS REFILLED AND PATIENT DRINKING WATER NOW AND TOOK SOME COUGH SYRUP. PATIENT HAD NO OTHER CARE NEEDS AT THIS TIME AND CALL LIGHT IS IN REACH. PATIENT'S HEADACHE IS 7/10 NOW AFTER SHE GOT UP WITH THE RETAIL SUPPORT ASSOCIATE TO THE BEDSIDE COMMODE.
--- NOTE | 2021-05-31 23:30 | NUR ---
PATIENT'S NAUSEA HAS RESOLVED. ASKED PATIENT IF SHE WAS IN NEED OF ANY TYLENOL OR MAALOX AT THIS TIME AND PATIENT DENIED THE NEED AND HAD NO OTHER REQUESTS AT THIS TIME. PATIENT REMAINS ON 10L/NC HIGH FLOW AND HAS SATS OF 96% AT THIS TIME. PATIENT IS ON HER RIGHT SIDE AND CALL LIGHT IS IN REACH.
--- NOTE | 2021-06-01 00:46 | NUR ---
PATIENT'S O2 SATS DROPPED INTO THE HIGH 70'S AND THIS RN WENT INTO THE PATIENT'S ROOM AND PATIENT WAS HAVING A COUGHING FIT AFTER SHE HAD JUST TURNED TO HER LEFT SIDE. O2 INCREASED FROM 10L TO 16L/NC HIGH FLOW. PATIENT WAS NOT COMPENSATING 86%. PATIENT ASSISTED TO PRONING POSITION AND O2 SAT STABLIZED AND O2 TURNED BACK DOWN TO 10L/NC HIGH FLOW AND SATS NOW AT 99%. MAALOX WAS GIVEN FOR UPSET STOMACH AND TYLENOL GIVEN FOR RITTER 4/10 PAIN. CALL LIGHT IS IN PATIENT'S REACH AND SHE HAS NO MORE CARE NEEDS AT THIS TIME. LIGHTS TURNED DOWN.
--- NOTE | 2021-06-01 03:20 | NUR ---
PATIENT UP TO THE BEDSIDE COMMODE WITH RHONDA OHARA. PATIENT HYPEROXYGENATED WITH 16L/NC HIGH FLOW TO GET UP AND GET BACK TO BED. BACK ON 10L/NC AND ON HER RIGHT SIDE. O2 SATS=96%. PATIENT'S ICE WATER REFILLED. PATIENT HAS NO OTHER CARE NEEDS AT THIS TIME. CALL LIGHT IS IN REACH.
--- NOTE | 2021-06-01 05:58 | NUR ---
PATIENT HAS RITTER OF 4/10 AND PO TYLENOL GIVEN. PATIENT ALOS GIVEN HER AM MEDS WITH TESSALON SATHISH AND MAALOX FOR UPSET STOMACH. PATIENT SAYS SHE FEELS PRETTY GOOD THIS MORNING AND HER O2 SATS ARE 91% ON 10L/NC HIGH FLOW. PATIENT WAANTING TO SIT UP IN SEMI-FOWLERS POSITION FOR NOW. LIGHTS TURNED DOWN AND CALL LIGHT IS IN REACH.
--- NOTE | 2021-06-01 09:38 | NUR ---
Patient transitioned to prone position. Patient on 12L high flow oxygen nc, sat level 93%. Patient reports continued shortness of breath at rest. Respirations are non labored. Patient tolerated 25% of breakfast and is drinking a good amount of liquids. Patient encouraged to prone as much as possible, pt receptive. Personal supplies and call light within reach. Patient declined further needs.
--- NOTE | 2021-06-01 10:20 | NUR ---
Updated patient's Jose Johnson via phone.
--- NOTE | 2021-06-01 11:00 | NUR ---
No change in plan for discharge.
--- NOTE | 2021-06-01 11:28 | NUR ---
Patient assisted to bedside commode with this RN. Oxygen saturation declined to 83% on 12l high flow nc. Patient back to bed, repositioned self to semi-fowlers. Oxygen slowly increased to 90% on the 12L high flow nc. Patient reports she is comfortable as she is. Dr. Lamar in to see patient, per his report patient will have a CT scan this morning. No needs. Patient receptive to plan of care.
--- NOTE | 2021-06-01 14:55 | NUR ---
Patient in prone position, no distress. Patient on vapotherm @ 30L/55%FI02, oxygen saturation is 97%. Patient states she feels better this afternoon after sitting up in chair for several hours. Patient declined shower today, she would like to try tomorrow. No needs. Personal supplies and call light within reach.
--- NOTE | 2021-06-01 17:04 | NUR ---
Patient assisted to chair for dinner. Pt reports at this time she can no longer handle wearing the vapotherm, she reports it "feels hot"-settings are at lowest heat rate. Pt placed to wall high flow oxygen @10L per nc, no respiratory distress. No further needs. Personal supplies and call light within reach.
--- NOTE | 2021-06-01 20:03 | NUR ---
RECEIVED REPORT FROM DAY SHIFT RN. PATIENT IS RESTING IN CHAIR. NO NEEDS NOTED. CALL LIGHT IN REACH.
--- NOTE | 2021-06-01 20:50 | NUR ---
PATIENT ASSESMENT COMPLETED. [place]IST[place] [facility] [place] WAS ABLE TO VOID. PATIENT IS BACK IN BED RESTING. PATIENT IS SOB W/ACTIVITY. PATIENT IS ON 10L VIA NC. PATIENT DENIES ANY SOB AT REST. PATIENTS VITALS TAKEN AND RECORDED. INTAKE AND OUPUT RECORDED. SCHEDULED MEDICATIONS GIVEN PER ORDER. PATIENT IS SL AND FLUSHES WELL. PATIENT GIVEN PRN COUGH MEDICATION PER ORDER. PATIENT GIVEN PRN TYLENOL PER ORDER FOR A HEADCAHE. PATIENT IS ON TELE #7 FOR OXYGEN MONITORING. PATIENT DENIES ANY FURTHER NEEDS. CALL LIGHT IN REACH.
--- NOTE | 2021-06-02 00:21 | NUR ---
PATIENT IS RESTING IN BED WITH EYES CLOSED, RR 22. BREATHING IS EVEN AND UNLBAORED. OXYGEN SATURATION IS 97%. CALL LIGHT IN REACH.
--- NOTE | 2021-06-02 01:57 | NUR ---
PATIENT ASSISTED TO THE [facility]. PATIENT WAS ABLE TO VOID AND HAVE A BM. PATIENT IS BACK IN BED RESTING. PATIENT REMAINS ON 10L VIA NC. PATIENT GIVEN PRN HEARTBURN MEDICATION PER ORDER. PATIENT PROVIDED WITH WARM TEA. NO FURTHER NEEDS NOTED. CALL LIGHT IN REAC.
--- NOTE | 2021-06-02 06:39 | NUR ---
PATIENTS VITALS TAKEN AND RECORDED. PATIENT UP TO BSC. PATIENT WAS ABLE TO VOID. PATIENT IS BACK IN BED RESTING. PATIENT DENIES ANY SOB. PATIENT REMAINS ON 10L VIA NC. INTAKE AND OUPUT RECORDED. IV FLUSHED AND IS SL PER ORDER. PATIENT GIVEN PRN TYLENOL PER ORDER FOR HEADACHE. PATIENTS ICE WATER REFILLED. PATIENT DENIES ANY FURTHER NEEDS. CALL LIGHT IN REACH.
--- NOTE | 2021-06-02 07:31 | NUR ---
REPORT RECEIVED FROM LAUREN MICHAELS. PT RESTING IN BED ON LEFT SIDE, OXYGEN SATURATION 93% ON 10L O2 BY HIGH FLOW HUMIDIFIED NC. PT DENIES REQUESTS OR COMPLAINTS AT THIS TIME. CALL LIGHT WITHIN REACH. BED RAILS UP.
--- NOTE | 2021-06-02 08:51 | NUR ---
MORNING ASSESSMENT AND MEDICATON DUE. PT CALL LIGHT ON. PT REQUESTS ASSISTANCE UP TO BEDSIDE COMODE. O2 INCREASED TO 16L O2 BY NC WITH AMBULATION. PT MAINTAINS OXGYEN SATURATIONS 88-90% WITH ACTIVITY. PT PERFORMS SELF STEVEN CARE, PT BACK TO BED INDEPEDANTLY. PT REPORTS SHE IS GENERALLY "FEELING BETTER." PT REPORTS A "GOOD NIGHTS SLEEP." REPORTS HEADACHE PAIN HAS IMPROVED NOW 02/16. CRACKELS NOTED IN RIGHT LOWER LOBE OF LUNG, IMPROVED SINCE TUESDAY'S ASSESMENT. I.S. USE DEMONSTRATED X5 REACHING 700-1000ML. STRONG COUGH NOTED WITH CLEAR SPUTUM. PT SHOWING MODERATE APPITTIE AND REPORTS SENSE OF TASTE IS RETURNING. PT REQUSTS SHOWER LATER THIS SHIFT. PT UP IN BED EATING BREAKFAST. O2 REMAINS AT 16L WHILE EATING WITH OXYGEN SATURATIONS 88-92%. PT DENIES ADDITONAL REQUESTS OR COMPLAINTS. CALL LIGHT WITHIN REACH.
--- NOTE | 2021-06-02 10:30 | NUR ---
PT READY FOR SHOWER. PT UP WITH STAND BY ASSIST AND DESATURATES TO 82% ON 10L O2 BY NC. PT BACK TO BED AND HYPEROXYGENATED WITH 16L O2 BY NC, O2 SATURATION REACHES 100%. PT UP TO SHOWER, INDEPENDANT IN SHOWER. LINENS CHANGED. ROOM CLEANED. PT DEMONSTRATES USE OF CALL LIGHT. OXGYEN SATURATIONS MAINTAINING AT 88-92% ON 16L O2 BY HIGH FLOW HUMIDIFIED NASAL CANULA. CALL LIGHT WIHTIN REACH.
--- NOTE | 2021-06-02 10:54 | NUR ---
PT FINISHED WITH SHOWER. CALL LIGHT ON. PT REQUESTS ASSISTANCE GETTING DRESSED AND BACK TO BED. PT ASSISTED WITH DRESSING. PT AMBULATES BACK TO BED WITH STAND BY ASSIST. OXYGEN SATRUATIONS 88% UP ON RETURN TO BED. MD TO BEDSIDE FOR ROUNDS. PT VERBALIZES UNDERSTANDING OF PLAN OF CARE. OXYGEN WEANED TO 10 L O2 BY NC WITH OXYGEN SATURATIONS 89-93%. IV DRESSING WET AND LOOSE, CHAGNED PER PROTOCOL. LUNCH ORDER PLACED. FOOD SERVICE AGENT TO BEDSIDE TO ASSIST PT WITH STYLING HAIR. NO ADDITIONAL REQUESTS OR COMPLAINTS. CALL LIGHT WITHIN REACH. BED RAILS UP.
--- NOTE | 2021-06-02 12:14 | NUR ---
LUNCH ARRIVED. DELIVERED TO PT. PT REMAINS UP TO CHAIR FOR LUNCH. PT REMAINS ON 10L O2 BY NC WITH OXYGEN SATURATIONS 90-94%. PT DENIES ADDITIONAL REQUESTS OR COMPLAINTS. CALL LIGHT WITHIN REACH.
--- NOTE | 2021-06-02 12:30 | NUR ---
No change in plan for dc. Pt cont. on .
--- NOTE | 2021-06-02 14:04 | NUR ---
AFTERNOON ASSESSMENT AND MEDICATION DUE. PT UP TO CHAIR, FINISHED WITH LUNCH. PT REPORTS 5/10 HEADACHE PAIN, SEE MAR FOR MEDICATION GIVEN. O2 [id number]% ON 10L O2 BY NC UP TO CHAIR. PT REPORTS "I FEEL LIKE I HAVE ENERGY, I WANT TO GET UP AND WALK AROUND." PT UP IN ROOM TO AMBULATE. DROPS TO 88% ON 10L O2 BY NC WITH AMBULATION, DENIES DIZZINESS. PT STEADY ON FEET AND STATES "I FEEL LIKE I COULD DO HOUSE WORK." PT VOIDS 400ML CLEAR YELLOW URINE IN RESTROOM. ASSESSMENT DONE. LUNG SOUNDS CLEAR IN UPPER LOBES, TIGHT AND DEMINISHED IN BASES. I.S. USE DEMONSTRATED. PT REACHES 1000ML X5. PT ENCORUAGED TO PRONE. PT INDEPENDANT INTO PRONING POSITION, O2 WEANED TO 4L O2 BY NC WHILE PRONING WITH OXYGEN SATURATIONS ABOVE 90%. NO ADDITIONAL REQUESTS OR COMPLAINTS. CALL LIGHT WIHTIN REACH. BED RAILS UP.
--- NOTE | 2021-06-02 15:42 | NUR ---
THIS RN TO ROOM TO CHECK ON PT. PT CONTINUES PRONING. OXYGEN SATURATIONS OF 92% ON 4L O2 BY NC. PT RESTING WITH EYES CLOSED. RESPIRATIONS EVEN AND UNLABORED. PT ALLOWED TO REST. CALL LIGHT WITHIN REACH. BED RAILS UP.
--- NOTE | 2021-06-02 16:00 | NUR ---
LEO, PTS CALLED, WITH UPDATE ON PTS STATUS. LEO UPDATED ON PLAN OF CARE AND PT STATUS. LEO VERBALIZES UNDERSTANDING. STATES HIS QUESTIONS HAVE BEEN ANSWERED.
--- NOTE | 2021-06-02 16:30 | NUR ---
PT HRE FOR COIVD RELATED PNEUMONIA. PT UP WITH STAND BY ASSIST TO SHOWER AND UP TO CHAIR THIS SHIFT. PT REPORTS ENERGY LEVELS HAVE IMPROVED THIS SHIFT, ABLE TO STAY UP TO CHAIR FOR LUNCH. OXYGEN NEEDS IMPROVING, REQUIRED 16L O2 WITH SHOWER, 10 WHILE UP TO CHAIR AND WEANED TO 4L WHILE RESTING IN BED AND PRONING WITH OXYGEN SATURATIONS ABOVE 90%. HEART BURN CONTINUES, PRN AND SCHEDULED MEDICATIONS GIVEN. PRN PAIN MEDICAITON GIVEN FOR HEADACHES. PT PARTICIPATING IN PRONING PROTOCOLS. PT VOIDING QUANTITY SUFFICIENT. PT USES CALL LIGHT AND MAKES NEEDS KNOWN.
--- NOTE | 2021-06-02 17:17 | NUR ---
THIS RN TO ROOM TO CHECK ON PT. O2 REMAINS ABOVE 90% ON 4L O2 BY NC. STAND BY ASSIT UP TO RESTROOM AND THEN TO CHAIR. O2 SATURATIONS DROP TO 86%. O2 INCREASED TO 6L O2 BY NC FOR DINNER AND ACTIVITIES, AND MAINTAININ ABOVE 90%. DINNER DELIVERED TO PT. VITAL SIGNS STABLE. PT DENIES ADDITIONAL REQUESTS OR COMPLAINTS. CALL LIGHT WITHIN REACH.
--- NOTE | 2021-06-02 18:45 | NUR ---
THIS RN TO ROOM TO CHECK ON PT. PT REMAINS UP TO CHAIR. O2 92% ON 6L O2 BY NC. PT DENIES REQUESTS OR COMPLAINTS AT THIS TIME. CALL LIGHT WITHIN REACH.
--- NOTE | 2021-06-02 19:03 | NUR ---
PT UP TO RESTROOM WITH SBA. PT INDEPENDENT IN RESTROOM. PT INDEPENDENT WITH ORAL CARE, PT BACK TO BED AND LAYING ON THE SIDE. CALL LIGHT WITHIN REACH. NO FURTHER NEEDS AT THIS TIME
--- NOTE | 2021-06-02 19:27 | NUR ---
REPORT GIVEN TO BRANDO AGUILAR, WHO IS ASSUMING CARE OF PT.
--- NOTE | 2021-06-02 20:01 | NUR ---
RECEIVED REPORT FROM DAY SHIFT RN. PATIENT IS RESTING IN BED ON HER LEFT SIDE. PATIENT DENIES ANY NEEDS. CALL LIGHT IN REACH.
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
--- NOTE | 2021-06-03 01:06 | NUR ---
PATIENT IS RESTING IN BED WITH EYES CLOSED ON HER RIGHT SIDE. RR IS 17, EVEN AND UNLABORED. ON TELE #7, OXYGEN SATURATION 96%.
--- NOTE | 2021-06-03 02:15 | NUR ---
PATIENT IS RESTING IN BED. PATIENT REQUESTED PUDDING. PATIENT TITRATED DOWN TO 5L VIA NC HI-FLOW. PATIENT IS ON TELE #7 AND OXYGEN SATURATION IS 94%. PATIENT DENIES ANY SOB. PATIENT DENIES ANY FURTHER NEEDS. CALL LIGHT IN REACH.
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
--- NOTE | 2021-06-03 07:20 | NUR ---
REPORT RECEIVED FROM LAUREN MICHAELS. PT UP TO [facility], O2 SATURATIONS AT 93% ON 5L O2 BY OK. PT DENIES REQUESTS OR COMPLAINTS. CALL LIGHT WITHIN REACH. BED RAILS UP.
--- NOTE | 2021-06-03 08:40 | NUR ---
BREAKFAST ARRIVED, DELIVERED TO PT. STAND BY ASSIST UP TO CHAIR FOR BREAKFAST. O2 SATRAUTONS 90-94% ON 5L O2 BY NC. PT EATING BREAKFAST. NO ADDITIONAL REQUESTS OR COMPLAINTS. CALL LIGHT WITHIN REACH.
--- NOTE | 2021-06-03 09:31 | NUR ---
MORNING ASSESSMENT AND MEDICAITON DUE. THIS RN TO ROOM. PT REMAINS UP TO CHAIR. FINISHED WITH BREAKFAST. O2 SATURATIOSN 89-92% ON 2L O2 BY NC. PT REPORTS 3/10 HEADACHE WHICH IS "MUCH BETTER". PT REPORTS SHE FEELS THAT SHE IS READY TO GO HOME TODAY. LUNG SOUNDS CLEAR THROUGHOUT BUT FOR SMALL AMOUNT OF FINE CRACKELS IN RIGHT LOWER LOBE. PT MAINTAINTING OXGYEN SATRUATIONS WHILE RESTING ON 2L O2 BY NC. I.S. USE DEMONSTRATED, PT REATCHES 1000ML X5. SBA UP TO AMBULATE AROUND ROOM. OXGYEN SATURATIONS FALL TO 84% ON 2L. OXGYEN INCEASED TO 6L O2 BY NC WITH ACTIVITY TO MAINTAIN OXGYEN SATURATIONS ABOVE 90%. PT UP FOR SHOWER. INDEPENDANT WITH SHOWER. PT REPORTS STOMACH ACID HAS "REALLY IMPROVED." PT REPORTS APPITITE IS BACK TO NORMAL. 90% OF BREAKFAST EATEN, PT REPORTS "AND I'M STILL HUNGRY." SNACK PROVIDED. PT DEMONSTRATES USE OF CALL LIGHT. NO ADDITIONAL REQUESTS OR COMPLAINTS. CALL LIGHT BRISEIDA WATERS.
--- NOTE | 2021-06-03 10:20 | NUR ---
PT FINISHED WITH SHOWER. PT DRESSES SELF AND GETS BACK TO BED, SITTING ON EDGE OF BED. HORTICULTURE PROFESSOR TO BEDSIDE ASSISTING PT WITH HAIR STYLING. O2 SATURATIOS REMAIN 89-93% ON 6L O2 BY NC. PT REPORTS "FEELING PRETTY GOOD." NO ADDITIONAL REQUESTS OR COMPLAINTS. CALL LIGHT WITHIN REACH.
--- NOTE | 2021-06-03 10:39 | NUR ---
SBA FROM SHOWER CHAIR TO BED. PATIENT TOLERATED. THIS GYM MANAGER COMBED AND BRAIDED PATIENTS HAIR. I&OS CHARTED. CALL LIGHT IN REACH
--- NOTE | 2021-06-03 10:44 | NUR ---
THIS RN TO ROOM TO CHECK ON PT. PT SITTING UP ON EDGE OF BED. O2 SATURATONS 94-98% ON 6L 2 BY NC. PT WEANED TO 2L O2 BY NC. MEDICAITON GIVEN. LUNCH ORDER PLACED. PT REPOSITIONS SELF TO LYING ON LEFT SIDE. OXYGEN SATURATIONS REMAIN ABOVE 90%. NO ADDITIONAL REQUESTS OR COMPLAINTS. CALL LIGHT BRISEIDA WATERS.
--- NOTE | 2021-06-03 11:45 | NUR ---
Notified by Dr. Richter of plan to dc this pt. later today.
--- NOTE | 2021-06-03 12:26 | NUR ---
LUNCH ARRIVED. PT RESTING IN BED. STATES SHE JUST TURNED OVER ONTO HER BACK. O2 SATURATIONS MAINTIANING ABOVE 90% ON 2L O2 BY NC. STAND BY ASSIST UP TO CHAIR. SATURATIONS DROP TO 87-90% WITH ACTIVITY. O2 INCREASED TO 4L O2 BY NC FOR TIME UP TO CHAIR. PT DOING HER OWN TRAY/MEAL PREPARATIONS. WARM BLANKET PROVIDED. NO ADDITIONAL REQUESTS OR COMPLAINTS. OXGYEN SATURATIONS MAINTAINING ABOVE 90%. CALL LIGHT WITHIN REACH.
--- NOTE | 2021-06-03 14:26 | NUR ---
Patient just talked with the doctor about discharge orders. I&O, vitals are done. Call light is in reach and there are no further requests.
--- NOTE | 2021-06-03 15:01 | NUR ---
AFTERNOON ASSESSMENT DUE. PTREMAINS UP TO CHAIR. PT REPORTS MD WAS IN TO ROUND AND STATES SHE IS READY TO GO HOME. DISCHARGE ORDER SEEN. OXGYEN SATURATIONS REMAIN ABOVE 90% ON 2L O2 BY NC AT REST. STAND BY ASSIST UP TO RESTROOM, PT REQUIRES 6L O2 BY NC WITH ACTIVITIES IN ROOM TO MAINTAIN OXYGEN SATURATIONS ABOVE 90%. STAND BY ASSIST BACK TO CHAIR. EDUCATION DONE WITH PT REGARDING DISCHARGE INSTRUCTIONS, MEDICATIONS, HOME OXGYEN USE, AND FOLLOW UP. PT VERBALIZES UNDERSTANDING. PT REPORTS 3/10 HEADACHE. LUNG SOUNDS CLEAR BUT FOR FINE CRACKELS IN RIGHT LOWER LOBE. PT DEMONSTRATES USE OF I.S. REACHING 800ML. RT TO BEDSIDE TO DO HOME OXYGEN QUALIFIYING TEST. NO ADDITIONAL REQUESTS OR COMPLAINTS. CALL LIGHT WITHIN REACH.
[2021-06-03] MEDS ORDERED: PANTOPRAZOLE SO40 MG PO (15:02)
[2021-06-03] MEDS ORDERED: SUCRALFATE1 GM PO (15:02)
[2021-06-03] MEDS ORDERED: DEXAMETHASONE6 MG PO (15:03)
--- NOTE | 2021-06-03 15:15 | NUR ---
Received 02 qualifier from [facility] showing in need of 2L at rest and 5 with activity. Spoke with pt and she would 02 from DME in [place]. Called and spoke with Diandra. She states they do not have any concentrators available. Informed I will attempt to contact other DME.
--- NOTE | 2021-06-03 15:24 | NUR ---
PTS LEO CALLED WITH UPDATE ON PTS STATUS AND PLAN FOR DISCHRAGE. NO ANSWER AT THIS TIME.
--- NOTE | 2021-06-03 15:35 | NUR ---
LEO, PTS , RETURNED CALL. LEO UPDATED ON PTS STATUS AND DISCHARGE PLAN. LEO VERBALIZES UNDERSTANDING OF UPDATE AND DISCHARGE INSTRUCTIONS AND STATES HIS QUESTIONS HAVE BEEN ANSWERED.
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
--- NOTE | 2021-06-03 15:57 | NUR ---
Patient vitals, I&Os are done. Patient is getting ready for discharge.
--- NOTE | 2021-06-03 16:30 | NUR ---
Face sheet, 02 qualifier, rx, H&P faxed to [facility] after speaking with Lambert earlier. He requested husbands phone number and will call Jose.
--- NOTE | 2021-06-03 17:21 | NUR ---
PT READY FOR DISCHARGE. PT DRESSES SELF WITH STAND BY ASSIST. IV DC'D BY NATHALIE ELLIS CNA II. GAUZE AND COBAN APPLIED. VITAL SIGNS RETAKEN BY THIS RN PREVIOUS TEMPERATURE DOES NOT APPEAR ACCURATE. VITALS SIGNS STABLE. BELONGINGS RETRIEVED FROM [facility]E. DISCHARGE INSTRUCTIONS REVIEWED WITH PT INCLUING DETAILED FOCUS ON FOLLOW UP, MEDICAITONS, HOME OXYGEN USE, AND COVID 19 ISOLOATION. PT VERBALIZES UNDERSTANDING OF ALL INSTUCTIONS AND STATES HER QUESTIONS HAVE BEEN ANSWERED. PT TRANSFERES SELF TO WHEELCHAIR AND WHEELED FROM MED/SURG TO MEET HER . NO ADDITIONAL REQUESTS OR CONCERNS. PT DEMONSTRATES USE OF HOME OXYGEN TANK CORRECTLY.
== END 2021-06-03 17:30 | disposition home or self-care (01) | DRG 177 ==
LOC: ED 10:39 → MS 14:25
PROVIDERS: ADMIT Internal Medicine; ATTEND Internal Medicine
PROC: XW033E5 Introduction of Remdesivir Anti-infective into Peripheral Vein, Percutaneous Approach, New Technology Group 5 (ICD-10-PCS; principal; 2021-05-28)
PROC: 3E0333Z Introduction of Anti-inflammatory into Peripheral Vein, Percutaneous Approach (ICD-10-PCS; 2021-05-28)
PROC: 5A0945A Assistance with Respiratory Ventilation, 24-96 Consecutive Hours, High Flow/Velocity Cannula (ICD-10-PCS; 2021-05-29)
DX: U07.1 COVID-19 (principal); J12.82 Pneumonia due to coronavirus disease 2019; J96.01 Acute respiratory failure with hypoxia; K21.9 Gastro-esophageal reflux disease without esophagitis; E89.0 Postprocedural hypothyroidism; G43.909 Migraine, unspecified, not intractable, without status migrainosus; Z88.5 Allergy status to narcotic agent; Z79.899 Other long term (current) drug therapy; Z90.89 Acquired absence of other organs
CPT/HCPCS: 71045; 71260; 80053; 84484; 85025; 94640; 94760; 94799; 96374; 99285-25; A9270; C9113; J1100; J1650; J2405; J7050; Q9967; U0003